=== PATIENT | female | born 1960 ===

== ENCOUNTER → 2025-06-05 12:48 | Outpatient (REF) | payer OTHER, SELFPAY | LOC: RAD 12:48 | PROVIDERS: ATTENDING PHYSICIAN Student in an Organized Health Care Education/Training Program; FAMILY PHYSICIAN Nurse Practitioner | DX: M79.662 Pain in left lower leg (principal); M25.572 Pain in left ankle and joints of left foot | CPT/HCPCS: 93971 ==